=== PATIENT | female | born 1990 | race Two or more races ===

== ENCOUNTER 2025-02-01 22:07 | Emergency (ER) | payer MEDICAID, SELFPAY ==
[2025-02-01 22:08] VITALS: BMI 30.2
--- NOTE | 2025-02-01 22:22 | PD.EDEXREM ---
ED Extremity Problem RME/HPI General Chief complaint: Extremity Problem,Nontraumatic Stated complaint: RIGHT ARM PAIN Time Seen by Provider: 02/01/25 22:12 Arrival date/time: 02/01/25 22:07 RME / HPI RME / HPI Narrative: 35-year-old female patient was brought in by family for evaluation regarding right forearm pain. Patient was moving a cabinet, was lifting heavy object, and suddenly felt something sound to the left forearm, ulnar side, distal, with swelling, severity moderate. Patient is able to bend and extend, flex, the finger without any limitation able to bend and extend the elbow and the wrist without any limitation. Denies any other complaints. Related Data Previous Rx's ?Medication ?Instructions ?Recorded ibuprofen 800 mg tablet 800 mg PO TID PRN pain #30 tabs 02/01/25 Allergies Allergy/AdvReac Type Severity Reaction Status Date / Time No Known Allergies Allergy Verified 02/01/25 22:08 Review of Systems Review of Systems Narrative Review of Systems: Review of system reviewed and within normal limits except mentioned in HPI ED Exam Narrative Physical exam: VITAL SIGNS: Reviewed. GENERAL APPEARANCE: Alert and interactive, follows commands, no acute distress, HEAD AND FACE: Non-traumatic. ENT: PERRL, pink conjunctivitis, eyelid no trauma, Mucous membrane moist. NECK: Supple, nontender, no nuchal rigidity. CHEST: No tenderness, no crepitus, no paradoxical movement, no retractions. LUNGS: Clear, well ventilated, symmetric, no rales, no wheezing, no ronchi, no stridor, good breath sounds bilaterally. HEART: Regular rate, regular rhythm, no murmur, no gallops. ABDOMEN: Soft, positive bowel sounds, nondistended, no guarding, nontender, no rebound, no masses, RECTAL: Deferred. GENITAL: Deferred. NEUROLOGICAL: Gross motor function intact sensory function intact, Appropriate for age. MUSCULOSKELETAL: low back nontender, full range of motion. EXTREMITIES: Right distal forearm tenderness, ulnar side, no palpable gap noted, full range of motion. SKIN: Color pink, dry, no rash, no lacerations, no abrasions, no contusions. LYMPHATICS: Deferred. Course Quality Measures none Orders Category Date Time Status Ketorolac Inj [Toradol Inj] Med 02/01/25 22:22 Pending 30 mg IM X1 ONE Extremity Problem MDM Narrative MDM Narrative:: 35-year-old female patient was brought in by family for evaluation regarding right forearm pain. Patient was moving a cabinet, was lifting heavy object, and suddenly felt something sound to the left forearm, ulnar side, distal, with swelling, severity moderate. Patient is able to bend and extend, flex, the finger without any limitation able to bend and extend the elbow and the wrist without any limitation. Denies any other complaints. Imaging is not needed at this time. Patient is able to supinate and pronate the forearm without any limitation or pain. Patient was placed on a volar for possible tendon injury forearm Patient appears nontoxic and hemodynamically stable. Patient discharged home and instructed to follow-up with primary care provider in 24 to 48 hours. Instructed to return to the emergency department immediately if worsening of symptoms Patient data External records reviewed:: None Clinical information provided by:: patient Social determinants that could affect healthcare access:: none Patient has the following chronic illnesses:: None How is presenting disease/condition affected by chronic disease/condition?: no chronic disease Evaluation data The following diagnostics were reviewed and interpreted by me:: other (specify) Lab and/or radiology exams considered but not ordered:: None Interpretation Summary: None Medications / Prescriptions Medications or Prescriptions considered but not ordered:: None Medication administrations:: Medication Administration History Ketorolac Tromethamine (Ketorolac Inj 60 Mg/2 Ml Vial) 30 mg IM X1 ONE Stop: 02/01/25 22:23 Toradol IM Consultations Consultation(s) initiated? (list below): No Diagnosis Extremity Problem Differential Diagnosis: other (Tendon injury, forearm, muscle injury forearm, tendinitis) Most likely diagnosis given after review of the tests above:: Forearm injury, forearm Admission Indicated Admission indicated?: not indicated Admission Request Was there a request for admission?: No Disposition Plan Disposition Plan: Discharge Discharge Attestation Discharge Attestation: The patient was given an opportunity to ask questions and understood the discharge instructions. Discharge instructions specifically effects, indications for sooner follow up or return to the emergency department, and the expected course of current diagnosis. Patient condition: Stable Discharge Plan Plan Patient Disposition: HOME (Self Care) Disposition Comment: Stable Prescriptions/Referrals Prescriptions/Med Rec: New ibuprofen 800 mg tablet 800 mg PO TID PRN (Reason: pain) Qty: 30 0RF Problem List Clinical Impression: Injury of forearm muscle or tendon Patient/Caregiver Discharge Instructions Education Materials: Wrist Pronation (Strength), ED Muscle Strain, Extremity Additional Instructions: Thank you for the opportunity for serving you today. You are stable for discharged . You are advised to: Follow-up with your PCP in 1 to 2 days Return to ED for worsening of symptoms Increase oral fluids Take medication as prescribed Please weaqr your splint for the next 3 weeks for your tendon injury to heal up Print Language: Peruvian Stand Alone Forms: [facility] Award Info., Patient Portal Info Letter PA/[employer] Supervising Physician PA/DAVID Supervising Physician: MD Sofía
[2025-02-01 22:35] VITALS: BP 123/81; PULSE 81; RESP 18; TEMP 36.9; O2SAT 97
--- NOTE | 2025-02-01 22:44 | PC.NURSE ---
prefabricated cock up splint applied to pts right wrist and forearm per LEVON Bender
== END 2025-02-01 23:11 | disposition home or self-care (01) ==
LOC: SERX 02-02 00:14
PROVIDERS: Emergency Provider Emergency Medicine; PCP Specialist
DX: S56.901A Unspecified injury of unspecified muscles, fascia and tendons at forearm level, right arm, initial encounter (principal); X58.XXXA Exposure to other specified factors, initial encounter
CPT/HCPCS: 99281

== ENCOUNTER → 2025-04-03 | Outpatient (CLI) | payer MEDICAID, SELFPAY ==
--- NOTE | 2025-04-03 16:41 | XR_ITS ---
Examination: Forearm, right, 2 views. Technique: Forearm, AP, lateral 2 views Date and time of exam: April 03, 2025 1644 hours INDICATIONS: Injury to perform one month ago with persistent pain. FINDINGS: Healing fracture distal ulnar shaft, mild radial angulation at the fracture site Radius intact IMPRESSION: Healing fracture, subacute, distal ulnar shaft
== END | disposition home or self-care (01) ==
PROVIDERS: PCP Specialist; Referring Provider Specialist; Visit Provider Specialist
DX: S52.201A Unspecified fracture of shaft of right ulna, initial encounter for closed fracture (principal); X58.XXXA Exposure to other specified factors, initial encounter
CPT/HCPCS: 73090